=== PATIENT | male | born 1985 | race Two or more races ===

== ENCOUNTER 2024-01-10 15:50 | Emergency (ER) | payer SELFPAY ==
[~2024-01-10] VITALS: Ht 180.3 cm; Wt 84.4 kg
[2024-01-10] MEDS ORDERED: LORazepam 2MG/ML-1ML VIAL IV ONE (17:00)
[2024-01-10] MEDS ORDERED: METOCLOPRAMIDE HCL 5MG/ml INJ 2ml VIAL IV ONE (17:00)
[2024-01-10 17:13] VITALS: BP 143/97; PULSE 87; RESP 18; TEMP 97.8; O2SAT 98
[2024-01-10] MEDS: HYDROcodone-ACET 10/325MG TAB PO ONE (17:19)
== END 2024-01-10 17:31 | disposition home or self-care (01) ==
LOC: ER 15:50
DX: M54.59 Other low back pain (principal); G89.29 Other chronic pain